=== PATIENT | female | born 1965 | race Caucasian/White ===

== ENCOUNTER 2021-07-17 15:50 | Outpatient (CLI) | payer BC, SELFPAY ==
--- NOTE | ~2021-07-17 | MM_ITS ---
EXAMINATION: MM screening ross BI w eneida HISTORY: Screening TECHNIQUE: Craniocaudal and mediolateral oblique 3-D tomosynthesis images were obtained and synthetic 2-D images were generated. CAD analysis was submitted and interpreted. COMPARISON: Comparison to multiple prior studies sequentially, with oldest reviewed study dated 03/28. BREAST PARENCHYMAL COMPOSITION: There are scattered areas of fibroglandular density. FINDINGS: There is no evidence of suspicious mass, calcification, or architectural distortion to sugg est malignancy in either breast. There has been no suspicious interval change. IMPRESSION: 1. No mammographic evidence of malignancy. 2. Recommend routine screening mammography in one year. BI-RADS Category 1: Negative Reviewed, dictated and finalized at location A. [employer]
== END 2021-07-17 15:51 | disposition home or self-care (01) ==
LOC: ANHIMG 15:53
PROVIDERS: PCP Family Medicine; Visit Provider Family Medicine
DX: Z12.31 Encounter for screening mammogram for malignant neoplasm of breast (principal)
CPT/HCPCS: 77063; 77067

== ENCOUNTER 2022-09-02 16:01 | Emergency (ER) | payer BC, SELFPAY ==
--- NOTE | 2022-09-02 17:00 | ED.DENTAL ---
HPI - Dental/Oral General Chief complaint: Dental/Oral Stated complaint: Rt Facial Swelling and Pain Time Seen by Provider: 09/02/22 17:00 Source: patient, RN notes reviewed and old records reviewed Mode of arrival: ambulatory Limitations: no limitations History of Present Illness HPI Narrative: 57 year old female presents to [facility] care with complaints of dental pain and right facial swelling with some pain to right jaw area for the past 3 days. Patient reports pain to #29 lower right molar, reports previous crown to the tooth. She reports that she has been using Oragel and has taken Aleve for her pain. She reports that she called her dentist and can't get appointment till Wednesday of next week.Patient reports no difficulty with her breathing or with swallowing, no trismus noted. MD Complaint: tooth pain Location: Tooth # (29) Onset (ago): day(s) (3) Severity: moderate Severity scale (1-10): 5 Exacerbating factors: chewing Treatment prior to arrival: topical analgesic and oral analgesic (Aleve) Related Data Home Medications Medication Instructions Recorded Confirmed levothyroxine 112 mcg tablet 112 mcg PO DAILY 09/02/22 09/02/22 losartan 50 mg tablet 50 mg PO DAILY 09/02/22 09/02/22 Allergies Allergy/AdvReac Type Severity Reaction Status Date / Time UNKNOWN NAUSEA MED Allergy Unknown Uncoded 09/02/22 17:15 Review of Systems Review of Systems: CONSTITUTIONAL: Denies fever, chills, or sweats. ENT: Denies rhinorrhea, congestion, sore throat, or otalgia. Reports dental pain#29 tooth with some gum swelling and pain to right jaw with some facial swelling right side. CARDIOVASCULAR: Denies chest pain, palpitations, or edema. RESPIRATORY: Denies cough or dyspnea. SKIN: Denies rash or itching. MUSCULOSKELETAL: Denies myalgia. NEUROLOGIC: Denies headache All systems reviewed & are unremarkable except as noted in HPI and below PMFSH Past Medical History Medical History (Updated 09/03/22 @ 10:12 by Mary Bean NP) Hypertension Hypothyroidism Surgical History Surgical History (Updated 09/03/22 @ 10:40 by Mary Bean NP) H/O: hysterectomy Previous section x3 Social History Social History (Updated 09/03/22 @ 10:41 by Mary Bean NP) Smoking status: Former smoker Tobacco type: cigarettes Alcohol intake: unknown Substance use type: does not use Living arrangements: with family Gender identity (if verbalized by the patient): Female Comments At time of signature, agree with nursing past medical, surgical, social and family history. There is no relevant family history pertinent to the presenting complaint Exam Narrative: GENERAL: Well-appearing, well-nourished, and in no acute distress. HEAD: Normocephalic, atraumatic. EYES: PERRLA and EOMI. ENT: Nares clear, no rhinorrhea or epistaxis. Mucous membranes moist. Missing teeth molars, no broken teeth noted or obvious caries, swelling redness and pain to gum around #29 tooth,no drainage noted, reports some right jaw pain and mild swelling to right side of face.No Gregg angina, no trismus noted NECK: Supple. no Lymphadenopathy CHEST: Clear to auscultation. No respiratory distress.SAO2 98% on room air HEART: Regular rate and rhythm. No murmur heard. Normal peripheral pulses. SKIN: Warm, dry, no rash. NEURO: No focal deficits. Alert and oriented x3. Course Course Emergency Course: Patient is aware of diagnosis, understands and agrees to treatment plan. Anticipatory guidance given. Patient agrees to follow-up as directed and is aware of reasons to seek care at the emergency department. Portions of this record may have been created with voice recognition software Level of Care: Express Care Visit Vital Signs Vital signs: Vital Signs Temperature 36.6 C 09/02/22 17:14 Pulse Rate 78 09/02/22 17:14 Respiratory Rate 18 09/02/22 17:14 Blood Pressure 152/93 H 09/02/22 17:14 Pulse Oximetry 98 09/02/22 17:14 Ox
[2022-09-02 17:14] VITALS: BP 152/93; PULSE 78; RESP 18; TEMP 36.6; O2SAT 98
== END 2022-09-02 17:24 | disposition home or self-care (01) ==
PROVIDERS: Emergency Provider Registered Nurse; PCP Family Medicine
DX: K08.89 Other specified disorders of teeth and supporting structures (principal); R22.0 Localized swelling, mass and lump, head; I10 Essential (primary) hypertension; E03.9 Hypothyroidism, unspecified; Z87.891 Personal history of nicotine dependence
CPT/HCPCS: 99213; G0463

== ENCOUNTER 2022-09-09 15:32 | Outpatient (CLI) | payer BC, SELFPAY ==
--- NOTE | ~2022-09-09 | MM_ITS ---
EXAMINATION: MM screening ross BI w eneida HISTORY: Screening mammogram TECHNIQUE: Craniocaudal and mediolateral oblique 3-D tomosynthesis images were obtained and synthetic 2-D images were generated. CAD analysis was submitted and interpreted. COMPARISON: No prior mammogram is available for comparison at this institution. BREAST PARENCHYMAL COMPOSITION: There are scattered areas of fibroglandular density. FINDINGS: There is no evidence of suspicious mass, calcification, or architectural distortion to sugg est malignancy in either breast. There has been no suspicious interval change. IMPRESSION: 1. No mammographic evidence of malignancy. 2. Recommend routine screening mammography in one year. BI-RADS Category 1: Negative Reviewed, dictated and finalized at location A.
== END 2022-09-09 15:33 | disposition home or self-care (01) ==
LOC: ANHIMG 15:33
PROVIDERS: PCP Family Medicine; Visit Provider Family Medicine
DX: Z12.31 Encounter for screening mammogram for malignant neoplasm of breast (principal)
CPT/HCPCS: 77063; 77067

== ENCOUNTER 2022-11-26 09:31 | Emergency (ER) | payer BC, SELFPAY ==
--- NOTE | ~2022-11-26 | XR_ITS ---
EXAMINATION: XR chest 2V DATE: 11/26/2022 10:36 INDICATION: Cough and wheezing. TECHNIQUE: Frontal and lateral views of the chest were obtained. COMPARISON: Chest 2 views 06/23/2017 FINDINGS: The chest demonstrates clear lungs without pneumonia, pleural effusion, or pneumothorax. Th e heart size is normal. IMPRESSION: 1. No acute cardiopulmonary disease. Reviewed, dictated and finalized at location A.
[2022-11-26 09:44] VITALS: BP 134/96; PULSE 94; RESP 18; TEMP 36.7; O2SAT 97
--- NOTE | 2022-11-26 10:04 | ED.URI ---
HPI - URI/Sore Throat General Chief Complaint: Upper Respiratory Infection Stated Complaint: sob Time Seen by Provider: 11/26/22 10:04 Source: patient, RN notes reviewed and old records reviewed Mode of arrival: ambulatory Limitations: no limitations History of Present Illness HPI Narrative: 57-year-old female presents to the [facility] with complaints of shortness of breath and cough for 1 week. Patient is currently a smoker. Denies any chest pain, fevers. States she has a history of bronchitis. Pertinent past history: seasonal allergies Related Data Home Medications Medication Instructions Recorded Confirmed levothyroxine 112 mcg tablet 112 mcg PO DAILY 09/02/22 11/26/22 losartan 50 mg tablet 50 mg PO DAILY 09/02/22 11/26/22 Allergies Allergy/AdvReac Type Severity Reaction Status Date / Time UNKNOWN NAUSEA MED Allergy Unknown Uncoded 09/02/22 17:15 Review of Systems Review of Systems: All systems reviewed & are unremarkable except as noted in HPI and below Constitutional: Constitutional: Reports no additional constitutional complaints Eyes: Eyes: Reports no additional eye complaints ENT: Reports system reviewed and no additional complaints, except as documented Cardiovascular: Cardiovascular: Reports no additional cardiovascular complaints, Denies chest pain and Denies dyspnea Respiratory: Respiratory: Reports as per HPI, Reports chest congestion, Reports cough and Reports dyspnea Gastrointestinal: Gastrointestinal: Reports no additional gastrointestinal complaints, Denies abdominal pain, Denies nausea and Denies vomiting Musculoskeletal: Musculoskeletal: Reports no additional musculoskeletal complaints Integumentary/Breasts: Skin/Breast: Reports system reviewed and no additional complaints, except as docu Neurologic: Reports system reviewed and no additional complaints, except as documented Psychiatric: Psychiatric: Reports no additional psychiatric complaints Allergic/Immunologic: Allergic/Immunologic: Reports no additional allergic/immunologic complaints [facility] Past Medical History Medical History (Updated 11/26/22 @ 10:51 by Selene Russ APRN) Hypertension Hypothyroidism Surgical History Surgical History (Updated 09/03/22 @ 10:40 by Mary Bean NP) H/O: hysterectomy Previous section x3 Social History Social History (Updated 09/03/22 @ 10:41 by Mary Bean NP) Smoking status: Former smoker Tobacco type: cigarettes Alcohol intake: unknown Substance use type: does not use Living arrangements: with family Gender identity (if verbalized by the patient): Female Comments At the time of my signature, I reviewed and agree with the nursing past medical, surgical, social, and family history. There is no relevant family history pertinent to the patient complaint. Exam Const: General: cooperative, healthy appearing, comfortable, no acute distress, well developed, alert and well nourished Nutritional Appearance: well nourished Orientation/consciousness: patient oriented x3 Limitations: no limitations HENMT: Head: normal to inspection Ears: hearing grossly normal bilaterally and external ears normal Face/Nose/Sinus: Normal external nose present, Normal nares present, Normal nasal mucous membranes and turbinates present and normal facial exam Face and sinus: normal facial exam Mouth: Yes Normal oral and palatal mucosa present, Yes lip normal and Yes moist mucous membranes Throat: posterior oropharynx normal and uvula midline Eyes: General: appearance normal, both eyes and all related structures Alignment and Position: alignment normal Periorbital: periorbital findings normal Pupils: Equal, round and reactive pupils present EOM: EOMs intact bilaterally Neck: Neck: normal visual inspection, full ROM, no lymphadenopathy and no meningeal signs Chest: Chest palpation & inspection: normal inspection of the chest Resp: Effort & Inspection: normal respi
== END 2022-11-26 11:00 | disposition home or self-care (01) ==
PROVIDERS: Emergency Provider Nurse Practitioner; PCP Family Medicine
DX: J40 Bronchitis, not specified as acute or chronic (principal); I10 Essential (primary) hypertension; E03.9 Hypothyroidism, unspecified; Z87.891 Personal history of nicotine dependence
CPT/HCPCS: 71046; 99213; G0463

== ENCOUNTER 2023-01-26 00:29 | Day surgery (SDC) | payer BC, SELFPAY ==
[2023-01-14 11:45] VITALS: BMI 27.4
[2023-01-26 09:27] VITALS: BP 126/86; PULSE 94; RESP 16; TEMP 36.2; O2SAT 99
[2023-01-26] MEDS: LACTATED RINGERS 1,000 ML 150 ML IV CONT (09:36)
--- NOTE | 2023-01-26 09:57 | PM.HPGS ---
History of Present Illness History of Present Illness Consent: Risks, benefits, and alternatives have been discussed and questions answered. Patient agrees to proceed with procedure. Chief complaint: other fecal abnormalities Narrative: Ursula Deng is a 57 year old female her for first colonoscopy, had + cologuard Review of Systems Constitutional: Constitutional: Denies headache(s) and Denies weakness Eyes: Eyes: Denies blurry vision ENT: Reports Normal hearing present, Denies headache(s) and Denies neck pain Cardiovascular: Cardiovascular: Denies chest pain and Denies dyspnea Respiratory: Respiratory: Denies dyspnea Gastrointestinal: Gastrointestinal: Reports no additional gastrointestinal complaints Genitourinary: Genitourinary: Denies dysuria Musculoskeletal: Musculoskeletal: Denies neck pain Integumentary/Breasts: Skin/Breast: Denies dry skin Neurologic: Reports Normal hearing present, Denies headache(s) and Denies weakness Psychiatric: Psychiatric: Denies anxiety Endocrine: Endocrine: Denies change in body appearance Hematologic/Lymphatic: Hematologic/Lymphatic: Denies easy bleeding Allergic/Immunologic: Allergic/Immunologic: Denies urticaria PMFSH Past Medical History Medical History (Updated 01/26/23 @ 10:00 by Chi Shafer MD) Cigarette nicotine dependence Hypertension Hypothyroidism Positive colorectal cancer screening using Cologuard test Surgical History Surgical History H/O: hysterectomy Previous section x3 Social History Social History (Updated 01/05/23 @ 15:00 by Leticia Ramirez MA) Smoking packs per day: 0.5 Smoking cigarettes per day: 10.0 Years smoked: 43 Smoking pack-years: 21.50 Smoking status: Current every day smoker Tobacco type: cigarettes Alcohol intake: current Alcohol use details: 2 drinks monthly Substance use: never Substance use type: does not use Lack of Transportation: No Lack of Food: Never True Current Housing: I Have Housing Concerned About Future Housing: No Difficulty Paying Gas/Electric Bills: No Difficulty Paying for Meds: No Currently Unemployed: No Education: Bachelor's Degree Difficulty w/ Childcare or Family Care: No Living arrangements: with family Occupation/Education: occupation Gender identity (if verbalized by the patient): Female Sexual Orientation (if Verbalized by the Patient): Straight or Heterosexual Spiritual care concerns: No Meds Home Medications and Allergies Home Medications Medication Instructions Recorded Confirmed Type levothyroxine 112 mcg tablet 112 mcg PO DAILY 09/02/22 01/26/23 History losartan 50 mg tablet 50 mg PO DAILY 09/02/22 01/14/23 History albuterol sulfate 90 mcg/actuation 2 puff inhalation QID PRN 11/26/22 01/14/23 Rx aerosol inhaler shortness of breath or wheezing #6.7 grams inhalational spacing device #1 ea 11/26/22 Rx (Aerochamber MV spacer) varenicline 0.5 mg (11)-1 mg (42) See Rx Instructions PO PER PKG DIR 01/05/23 01/14/23 Rx tablets in a dose pack #53 ea Allergies Allergy/AdvReac Type Severity Reaction Status Date / Time No Known Allergies Allergy Verified 01/26/23 09:26 Vital Signs Vital Signs - 24 hr 01/26/23 09:27 Temperature 97.2 F L Pulse Rate 94 Respiratory Rate 16 Blood Pressure 126/86 Pulse Oximetry 99 Oxygen Delivery Room Air Exam Const: General: comfortable and no acute distress HENMT: Face/Nose/Sinus: Normal nares present Eyes: General: appearance normal, both eyes and all related structures Neck: Neck: no JVD Resp: Auscultation: clear to auscultation bilaterally Cardio: Rate: regular rate Rhythm: regular rhythm GI: Inspection: non-distended GI Palp: Yes Soft to palpation Skin: General skin exam: normal color Neuro: General: gait normal Speech: normal speech Extrem: General: normal to inspection
[2023-01-26 10:27] VITALS: BP 113/79; PULSE 94; RESP 23; O2SAT 91
[2023-01-26 10:37] VITALS: BP 116/78; PULSE 86; RESP 26; O2SAT 99
[2023-01-26 10:47] VITALS: BP 125/84; PULSE 78; RESP 15; O2SAT 99
== END 2023-01-26 10:56 | disposition home or self-care (01) ==
PROVIDERS: PCP Family Medicine; Visit Provider Internal Medicine Gastroenterology
PROC: 0DJD8ZZ Inspection of Lower Intestinal Tract, Via Natural or Artificial Opening Endoscopic (ICD-10-PCS; CPT 45378; principal; 2023-01-26 10:45)
DX: R19.5 Other fecal abnormalities (principal); D12.2 Benign neoplasm of ascending colon; D12.3 Benign neoplasm of transverse colon; K57.30 Diverticulosis of large intestine without perforation or abscess without bleeding; K64.8 Other hemorrhoids; I10 Essential (primary) hypertension; E03.9 Hypothyroidism, unspecified; F17.210 Nicotine dependence, cigarettes, uncomplicated; Z79.51 Long term (current) use of inhaled steroids
CPT/HCPCS: 45385; 88305; J2704; J7120

== ENCOUNTER 2023-05-29 16:04 | Emergency (ER) | payer BC, SELFPAY ==
[2023-05-29 16:16] VITALS: BP 149/95; PULSE 106; RESP 16; TEMP 36.7; O2SAT 97
--- NOTE | 2023-05-29 16:49 | ED.URI ---
HPI - URI/Sore Throat General Chief Complaint: Upper Respiratory Infection Stated Complaint: Sore Throat,Body Chills,Headache Time Seen by Provider: 05/29/23 16:42 Source: patient and RN notes reviewed Mode of arrival: ambulatory Limitations: no limitations History of Present Illness HPI Narrative: Patient presents today complaining of sore throat, chills, cough, headache, and neck pain since yesterday. She currently rates her pain 7/10 and took Aleve yesterday with some relief, but none today. She did a home COVID test last night that was negative. Works at a [employer] Medications Medication Instructions Recorded Confirmed levothyroxine 112 mcg tablet 112 mcg PO DAILY 09/02/22 05/29/23 losartan 50 mg tablet 50 mg PO DAILY 09/02/22 05/29/23 Allergies Allergy/AdvReac Type Severity Reaction Status Date / Time No Known Allergies Allergy Verified 05/29/23 16:23 Review of Systems Review of Systems: CONSTITUTIONAL: Denies body aches, fever, or sweats.+ chills EYES: Denies visual changes, redness, or discharge. ENT: Denies rhinorrhea, congestion, or otalgia.+ sore throat, neck pain CARDIOVASCULAR: Denies chest pain, palpitations, or edema. RESPIRATORY: Denies dyspnea.+ cough GASTROINTESTINAL: Denies abdominal pain, nausea, vomiting, or diarrhea. GENITOURINARY: Denies dysuria or hematuria. SKIN: Denies rash, itching, or wounds. MUSCULOSKELETAL: Denies back pain, joint pain, or myalgia. NEUROLOGIC: Denies numbness, tingling, or weakness.+ headache PSYCH: Denies depression or anxiety. [facility] Past Medical History Medical History Cigarette nicotine dependence Hypertension Hypothyroidism Positive colorectal cancer screening using Cologuard test Surgical History Surgical History H/O: hysterectomy Previous section x3 Social History Social History Smoking packs per day: 0.5 Smoking cigarettes per day: 10.0 Years smoked: 43 Smoking pack-years: 21.50 Smoking status: Current every day smoker Tobacco type: cigarettes Alcohol intake: current Alcohol use details: 2 drinks monthly Substance use: never Substance use type: does not use Lack of Transportation: No Lack of Food: Never True Current Housing: I Have Housing Concerned About Future Housing: No Difficulty Paying Gas/Electric Bills: No Difficulty Paying for Meds: No Currently Unemployed: No Education: Bachelor's Degree Difficulty w/ Childcare or Family Care: No Living arrangements: with family Occupation/Education: occupation Gender identity (if verbalized by the patient): Female Sexual Orientation (if Verbalized by the Patient): Straight or Heterosexual Spiritual care concerns: No Comments At time of signature, I have reviewed and agree with nursing past medical, surgical, social and family history unless otherwise noted. Please see nursing chart for further information. There is no relevant family history pertinent to the presenting complaint Exam Narrative: GENERAL: Mildly ill-appearing, well-nourished, and in no acute distress. HEAD: Normocephalic, atraumatic. EYES: EOMI. No redness or drainage. Conjunctivae normal. ENT: Mucous membranes pink and moist. Nares clear. No rhinorrhea. TMs normal bilaterally. Throat mildly erythematous and edematous without exudate. Uvula midline. NECK: Normal AROM. Supple. Right anterior cervical chain lymphadenopathy and tenderness CHEST: No respiratory distress. Clear to auscultation. HEART: Regular rate and rhythm. No murmur appreciated. EXTREMITIES: Normal range of motion. No edema. SKIN: Warm, dry, no rash. Capillary refill normal. Normal skin turgor. NEURO: No focal deficits. Alert and oriented x3. Gait steady. PSYCH: Normal affect. No signs of depres
== END 2023-05-29 16:55 | disposition home or self-care (01) ==
PROVIDERS: Emergency Provider Nurse Practitioner; PCP Family Medicine
DX: J06.9 Acute upper respiratory infection, unspecified (principal); F17.210 Nicotine dependence, cigarettes, uncomplicated; I10 Essential (primary) hypertension; E03.9 Hypothyroidism, unspecified
CPT/HCPCS: 87081; 87880; 99213; G0463

== ENCOUNTER 2023-12-23 07:34 | Outpatient (CLI) | payer BC, SELFPAY ==
--- NOTE | ~2023-12-23 | MM_ITS ---
EXAMINATION: MM screening ross BI w eneida HISTORY: Screening mammogram, family history of breast cancer in her mother. TECHNIQUE: Craniocaudal and mediolateral oblique 3-D tomosynthesis images were obtained and synthetic 2-D images were generated. CAD analysis was submitted and interpreted. COMPARISON: 09/09/2022, 07/17/2021, 01/03/2019 BREAST PARENCHYMAL COMPOSITION:Not Dense. There are scattered areas of fibroglandular density. FINDINGS: No suspicious mass, calcification, or architectural distortion are identified in either ranulfo ast to suggest malignancy. There has been no suspicious interval change. IMPRESSION: No mammographic evidence of malignancy. Recommend routine screening mammography in one year. BI-RADS Category 1: Negative Reviewed, dictated and finalized at location .
== END 2023-12-23 07:35 | disposition home or self-care (01) ==
PROVIDERS: PCP Family Medicine; Visit Provider Family Medicine
DX: Z12.31 Encounter for screening mammogram for malignant neoplasm of breast (principal)
CPT/HCPCS: 77063; 77067

== ENCOUNTER 2025-03-02 01:16 | Day surgery (SDC) | payer BC, SELFPAY ==
--- NOTE | 2025-02-24 13:25 | P.HP_ITS ---
H&P: HPI History of Present Illness Date/Time: 02/24/25 13:25 Chief Complaint: DESTIN Narrative: DESTIN Review of Systems Review of Systems: All systems reviewed & are unremarkable except as noted in HPI and below PMFSH Past Medical History Medical History Personal history of colonic polyps Cigarette nicotine dependence Hypothyroidism Hypertension Surgical History Surgical History H/O: hysterectomy Previous section x3 Social History Social History Smoking packs per day: 0.5 Smoking cigarettes per day: 10.0 Years smoked: 43 Smoking pack-years: 21.50 Smoking status: Current every day smoker Tobacco type: cigarettes Alcohol intake: current Alcohol use details: 2 drinks monthly Substance use: never Substance use type: does not use Lack of Transportation: No Lack of Food: Never True Current Housing: I Have Housing Concerned About Future Housing: No Difficulty Paying Gas/Electric Bills: No Difficulty Paying for Meds: No Currently Unemployed: No Education: Bachelor's Degree Difficulty w/ Childcare or Family Care: No Living arrangements: with family Occupation/Education: occupation Gender identity (if verbalized by the patient): Female Sexual Orientation (if Verbalized by the Patient): Straight or Heterosexual Spiritual care concerns: No Meds Home Medications and Allergies Home Medications ?Medication ?Instructions ?Recorded ?Confirmed ?Type cetirizine 10 mg tablet (Zyrtec) 10 mg PO DAILY #60 ta bs 07/26/23 09/25/24 Rx levothyroxine 125 mcg tablet 125 mcg PO DAILY #90 tabs 07/16/24 09/25/24 Rx losartan 50 mg tablet 50 mg PO DAILY #90 tabs 08/2709/25/24 Rx mupirocin 2 % topical ointment 1 applic topical BID #2 2 grams 09/25/24 09/25/24 Rx (Centany) triamcinolone acetonide 0.1 % 1 applic topical BID #30 grams 09/25/24 09/25/24 Rx topical cream albuterol sulfate 90 mcg/actuation 1 inh inhalation Q4 H #8.5 grams 01/30/25 Rx aerosol inhaler (Ventolin HFA) fluticasone propionate 115 2 puff inhalation BID #12 g jesse 02/13/25 Rx mcg-salmeterol 21 mcg/actuation HFA inhaler (Advair HFA) Allergies Allergy/AdvReac Type Severity Reaction Status Date / Time cat dander Allergy Mild itchy eye Verified 09/25/24 15:09 seasonal allergies Allergy Mild Watery Eye Uncoded 09/25/24 15:09 Exam Narrative: + urethral mobility Assessment and Plan Assessment and plan (1) DESTIN (stress urinary incontinence, female): Code(s): N39.3 - Stress incontinence (female) (male) Status: Acute Assessment and Plan: urethral sling
[2025-02-27 11:36] VITALS: BMI 29.0
--- NOTE | 2025-02-27 11:44 | PC.NURSE ---
Report to the Outpatient Waiting Room, entrance under the green pavilion located off [facility], at time _0715_ on date _[id number]_. Planned Procedure Time: _09_.? Time changes happen often and if your time is changed the preop area will call you the afternoon before. - You and your visitor will be asked to self-screen and do not enter if you have any COVID symptoms. Please call surgeon if you need to reschedule. - A mask is optional within the hospital at this time. Patients may have clear liquids (water, carbonated beverages, clear teas, apple juice) until 3 hours prior to surgery with a maximum of 20 ounces. - No food from midnight until time of surgery and no smoking, or chewing tobacco (or any form of nicotine). No chewing gum, candy or mints. Take only the following medications with a SIP of water on the morning of surgery: ___Levothyroxine and if needed inhalers.___ DO NOT STOP ANY OF YOUR OTHER PRESCRIPTION MEDICATIONS PRIOR TO SURGERY EXCEPT THE FOLLOWING Hold all vitamins and supplements for 3 days per anesthesiologist. Medications to discontinue per physician Date to take last dose Please no make-up, nail somali, hairspray, perfume, deodorant, or body powder the day of surgery.? No jewelry (including any body piercings) or valuables the day of surgery, leave them at home.? Please take a shower or bath the night before, or the morning of, surgery with an antibacterial soap.? Wear comfortable, loose fitting clothing.? - Jewelry must be removed prior to entering the operating room.? Rings and piercings that are not removed may be cut off. - The hospital will not accept responsibility for valuables.? - Please leave all valuables, including medications, at home the day of surgery. If you are going home after surgery, a licensed hi lo driver must drive you home.? - NO public transportation without another adult if you receive anesthesia. - We recommend that an adult stay with you for 24 hours following discharge. - We also recommend that you do not drive, make important decision, drink alcoholic beverages, or take any drugs that were not prescribed by your health care provider for at least 24 hours after your discharge time. Follow any additional instructions given to you from your surgeon. Telephone instructions given to __Ursula___and asked if any additional questions and then verbalized understanding. Patient advised to call surgeon office or pre surgery nurse liaison [phone] if any additional questions.
--- OUTSIDE RECORDS SUMMARY | 2025-03-02 01:19 | XMS_ITS | Clinical Summary ---
Author Organization [facility] Address Pending sale to [facility] [place] [address] Care Team Providers Care Chef & Owner Name Role Phone Leo Palma MD Primary Care Provider [phone] Allergies No known active allergies Medications albuterol sulfate HFA 108 (90 Base) MCG/ACT inhaler Inhale 2 puffs into the lungs every 4 (four) hours as needed for Wheezing or Shortness of breath. 18 g 4 Active levothyroxine (SYNTHROID) 125 MCG tablet Take 1 tablet (125 mcg total) by mouth every morning. Active losartan (COZAAR) 50 MG tablet Take 1 tablet (50 mg total) by mouth daily. Active cetirizine (ZYRTEC) 10 MG tablet Take 1 tablet (10 mg total) by mouth nightly at bedtime. Active fluticasone-puneet meterol (ADVAIR HFA) 115-21 MCG/ACT inhaler Inhale 2 puffs into the lungs 2 (two) times daily. 8 g 4 Active Active Problems Problem Noted Date Diagnosed Date Acute respiratory failure (CMS/HCC HHS/HCC) 02/26 Social History Tobacco Use Types Packs/Day Years Used Date Smoking Tobacco: Every Day Cigarettes 1 25 Smokeless Tobacco: Never Tobacco Cessation:Ready to Q uit: Not Asked; Counseling Given: Not Answered Alcohol Use Standard Drinks/Week Comments Yes 0 (1 standard drink = 0.6 oz pur e alcohol) social C Utilities Answer Date Recorded In the past 12 months has [employer], gas, oil, or water [employer] threatened to shut off services in your home? No 03/10/2024 Humiliation, Afraid, Rape, and Kick questionnair e Answer Date Recorded Within the last year, have y ou been afraid of your partner or ex-partner? No 03/10/2024 Within the last year, have y ou been humiliated or emotionally abused in other ways by your partner or ex-partner? No Within the last year, have y ou been kicked, hit, slapped, or otherwise physically hurt by your partner or ex-partner? No 03/10/2024 Within the last year, have y ou been raped or forced to have any kind of sexual activity by your partner or ex-partner? No 03/10/2024 Overall Financial Resource Strain (CARDIA) Answe r Date Recorded How hard is it for you to pa y for the very basics like food, housing, medical care, and heating? Not hard at all 03/10/2024 Hunger Vital Sign Answer Date Recorded Within the past 12 months, y ou worried that your food would run out before you got the money to buy more. Never true 03/10/20 24 Within the past 12 months, t he food you bought just didn't last and you didn't have money to get more. Never true 03/10/2024 PRAPARE - Transportation Answer Date Re corded In the past 12 months, has l ack of transportation kept you from medical appointments or from getting medications? No 02/26 In the past 12 months, has l ack of transportation kept you from meetings, work, or from getting things needed for daily living? No 03/10/2024 Housing Stability Vital Sign Answer River e Recorded In the last 12 months, was t here a time when you were not able to pay the mortgage or rent on time? No 03/10/2024 In the past 12 months, how m any times have you moved where you were living? 0 03/10/2024 At any time in the past 12 m [facility], were you homeless or living in a fdc (including now)? No 03/10/2024 Comments Unknown Sex and Gender Information Value Date Recorded Sex Assigned at Not on file Legal Sex Female 8:22 PM CDT Gender Identity Not on file Sexual Orientation Not on file Last Filed Vital Signs Vital Sign Reading Time Taken Comments Blood Pressure 142/94 03/12/2024 6:55 AM CDT nurse notified Pulse 83 03/12/2024 6:55 AM CDT Temperature 36.3 C (97.3 F) 03/12/2024 6:55 AM CDT Respiratory Rate 18 03/12/2024 6:55 AM CDT Oxygen Saturation 94% 03/12/2024 6:5 5 AM CDT Inhaled Oxygen Concentration - - Weight 84.3 kg (185 lb 13.6 oz) 03/12/2024 5:00 AM CDT Height 170.2 cm (5' 7) 03/10/2024 10:2 4 AM CDT Body Mass Index 29.11 03/10/2024 10:24 AM CDT Plan of Treatment Health Maintenance Due Date Last Done Comments Cervical Cancer Screening Pa p Smear (Age 30 to 64) Every 3 Years 1964 Colorectal Cancer Screening Colonoscopy (10 Years) 1964 Annual Physical 1967 Hepatitis C 1982 Pneumococcal Vaccine: 50+ Ye ars (1 of 2 - PCV) 1983 Cervical Cancer Screening Pa p with HPV Testing (Age 30 to 64) Every 5 Years 1994 Cervical Cancer Screening with HPV 1994 Mammogram Screening 2004 Zoster Vaccines (1 of 2) 2014 COVID-19 Vaccine ( - 2023-2 5 season) 2024 Lung Cancer Screening 03/11/2025 03/11/2024 DTaP, Tdap and Td Vaccines ( 2 - Td or Tdap) 07/13/2026 07/13/2016 RSV Immunization or 60+ Years (1 - 1-dose 75+ series) 2039 Meningococcal B Vaccine Aged Out No l onger eligible based on patient's age to complete this topic Meningococcal Vaccine Aged Out No karin bev eligible based on patient's age to complete this topic RSV Immunizations Under 20 Months Aged Out No longer eligible based on patient's age to complete this topic Procedures Procedure Name Priority Date/Time Associated Diagnosis Comments CT CHEST WO CON Routine 03/11/2024 9:08 AM CDT from Last 3 Months or Most Recently Relevant to Health Maintenance Results * CT CHEST WO CON (03/11/2024 9:08 AM CDT) Anatomical Region Laterality Modality Chest Computed Tomogra phy 03/11/2024 9:50 AM CDT Impressions 03/11/2024 10:04 AM CDT IMPRESSION: Bilateral groundglass opacities, primarily in the left upper lobe, possibly atypical pneumonia but objectively nonspecific. Consider surveillance in three months. Referred By: Interpreted By: Hebert Carson MD, 03/11/2024 9:50 AM Narrative 03/11/2024 10:04 AM CDT [facility] [address] [place] [place] [address] Examination: CT of the chest without contrast. Exam time: 0910 hours. Clinical history: Hypoxemia. Comparison: None. Technique: Spiral scanning was performed through the chest without contrast. Sagittal and coronal reconstructions were performed from the data set. A dose lowering technique was used for this procedure, which may include, but is not limited to, dose reduction techniques, automated exposure control, the use of iterative reconstruction and ALARA/Image Gently techniques. Findings: There is minimal atherosclerotic calcification of the aorta. The heart and great vessels are otherwise unremarkable for the noncontrast technique. No hilar or mediastinal adenopathy is identified. No endobronchial abnormality is identified. There is scarring in the right apex including a calcified granuloma. There are groundglass opacities in both lungs, primarily in the left upper lobe, possibly reflecting atypical pneumonia but objectively nonspecific. There is no dominant mass, suspicious nodule or confluent airspace opacity. There is no pleural effusion. The chest wall structures appear intact. The included sections through the upper abdomen show no acute process. Procedure Note Hebert Carson MD - 03/11/2024 [facility] [address] [place] [id number] Examination: CT of the chest without contrast. Exam time: 0910 hours. Clinical history: Hypoxemia. Comparison: None. Technique: Spiral scanning was performed through the chest withoutcontrast. Sagittal and coronal reconstructions were performed from thedata set. A dose lowering technique was used for this procedure, whichmay include, but is not limited to, dose reduction techniques, automatedexposure control, the use of iterative reconstruction and ALARA/ImageGently techniques. Findings: There is minimal atherosclerotic calcification of the aorta.The heart and great vessels are otherwise unremarkable for the noncontrasttechnique. No hilar or mediastinal adenopathy is identified. Noendobronchial abnormality is identified. There is scarring in the rightapex including a calcified granuloma. There are groundglass opacities inboth lungs, primarily in the left upper lobe, possibly reflecting atypicalpneumonia but objectively nonspecific. There is no dominant mass,suspicious nodule or confluent airspace opacity. There is no pleuraleffusion. The chest wall structures appear intact. The included sectionsthrough the upper abdomen show no acute process. IMPRESSION: Bilateral groundglass opacities, primarily in the left upper lobe,possibly atypical pneumonia but objectively nonspecific. Considersurveillance in three months. Referred By: Interpreted By: Hebert Carson MD, 03/11/2024 9:50 AM Heber Vera MD CT Final Result from Last 3 Months or Most Recently Relevant to Health Maintenance Insurance [facility] Advance Directives * Full Code (Latest Code Status on File) Date Activated Date Inactivated Comments 03/10/2024 10:13 AM 03/12/2024 11:35 AM Care Teams Chef & Owner Relationship Specialty Start Date End Date Leo Palma MD [address] [place], [place] [id number] PCP - General FAMILY PRACTICE 01/02/23
--- OUTSIDE RECORDS SUMMARY | 2025-03-02 01:19 | XMS_ITS | Patient Health Record ---
Author Organization [facility] Address [address] [place] [address] Support Name Relationship Address Phone Lenin Deng Emergency Contact Unknown [phone] Ursula Deng Guarantor Unknown [phone] Reason For Referral No Information Plan Of Treatment No Information
--- OUTSIDE RECORDS SUMMARY | 2025-03-02 01:19 | XMS_ITS | Clinical Summary ---
Author Organization [facility] [employer] Address [address] [place] [address] Care Team Providers Care [employer] Name Role Phone Leo Palma MD Primary Care Provider [phone] [facility] [employer],non-owned Affiliates and Associated Physician Practices is amultiple site organization consisting of ambulatory clinics and hospital sitesin [place], [place], [place] and [place]. This disclosure is being madepursuant to the Care Everywhere program and may not contain all information available regarding this patient. Last updated 18.[facility] [employer] Allergies Active Allergy Reactions Criticality Noted Date Comments Diphenhydramine Other 05/24/2018 Sofia De La O Severe Sinus and Allergy sets off her vertigo. Medications * Be aware that medications may not be up to date on this document. Alwaysverify current medications with the patient. LEVOTHYROXINE SODIUM PO Active Nutritional Supplements (ESTROVEN PO) Active Family History Medical History Relation Name Comments Diabetes - Type 2 Father Cancer - Breast Mother Asthma Neg Hx Autoimmune Disease Neg Hx Bipolar Disorder Neg Hx Cancer - Colon Neg Hx Cancer - Other Neg Hx Cancer - Ovarian Neg Hx Cancer - Pancreatic Neg Hx Cancer - Prostate Neg Hx Depression Neg Hx Eczema Neg Hx Hypertension Neg Hx Migraine Neg Hx Osteoporosis Neg Hx Seizures Neg Hx Sudd. <30 Neg Hx Thyroid Disease Neg Hx Ulcerative Colitis Neg Hx Relation Name Status Comments Father Mother Alive Social History Tobacco Use Types Packs/Day Years Used Date Smoking Tobacco: Every Day Cigarettes 0.5 37 Smokeless Tobacco: Never Tobacco Cessation:Ready to Q uit: No; Counseling Given: Yes Comments:started smoking at age 15 Alcohol Use Standard Drinks/Week Comments No 0 (1 standard drink = 0.6 oz pur e alcohol) Comments No Sex and Gender Information Value Date Recorded Sex Assigned at Not on file Legal Sex Female 7:47 AM CDT Gender Identity Not on file Sexual Orientation Not on file Last Filed Vital Signs Vital Sign Reading Time Taken Comments Blood Pressure 116/70 05/24/2018 10:53 AM SPANISHER Pulse 98 05/24/2018 10:53 AM SPANISHER Temperature 37.4 C (99.3 F) 05/24/2018 10:53 AM SPANISHER Respiratory Rate 16 05/24/2018 10:53 AM SPANISHER Oxygen Saturation 97% 05/24/2018 10:53 AM SPANISHER Inhaled Oxygen Concentration - - Weight 70.8 kg (156 lb) 05/24/2018 10:53 AM SPANISHER Height 170.2 cm (5' 7) 05/24/2018 10:53 AM SPANISHER Body Mass Index 24.43 05/24/2018 10:53 AM SPANISHER Plan of Treatment Health Maintenance Due Date Last Done Comments COLOGUARD (AGES 45-75) - COL ON CA SCREENING 1964 COLON MONITORING 1964 COLONOSCOPY - COLON CA SCREENING 1964 CT COLONOGRAPHY - COLON CA SCREENING 1964 Colorectal Cancer Screening 1964 FIT - COLON CA SCREENING 1964 FLEX SIG - COLON CA SCREENING 1964 LIPID TESTING 1964 MAMMOGRAM 1964 HIV SCREENING 1979 HEPATITIS C SCREENING 06/15/1982 DTAP/TDAP/TD VACCINES (1 - Tdap) 1983 PNEUMOCOCCAL VACCINE 50+ (1 of 2 - PCV) 1983 ZOSTER VACCINE (1 of 2) 2014 DEPRESSION SCREENING 06/28/2024 COVID-19 VACCINE ( - 2023-2 5 season) 2025 INFLUENZA VACCINE (#1) 2025 Respiratory Syncytial Virus (RSV) Vaccine Pt: or over 60 yrs (1 - 1-dose 75+ series) 2039 HEPATITIS B VACCINE Aged Out No longe r eligible based on patient's age to complete this topic HIB VACCINE Aged Out No longer eligi ble based on patient's age to complete this topic HPV VACCINE Aged Out No longer eligi ble based on patient's age to complete this topic MENINGOCOCCAL (Group B) VACC INE SHARED DECISION-MAKING Aged Out No longer eligibl e based on patient's age to complete this topic MENINGOCOCCAL GROUPS A/C/Y/W VACCINE Aged Out No longer eligible b ased on patient's age to complete this topic Insurance ANTHEM ANTHEM Care Teams [employer] Relationship Specialty Start Date End Date Leo Palma MD PCP - General Family Medicine 10/08/17
--- NOTE | 2025-03-02 07:15 | WPDHPUPDATE1 ---
History and Physical Update Update Date/Time: 03/02/25 07:15 History and Physical has been reviewed, including an updated exam of the patient. There are NO changes in the patient's condition. Risks, benefits, and alternatives have been discussed and questions answered. Patient agrees to proceed with procedure.
[2025-03-02 07:26] VITALS: BP 140/87; PULSE 80; RESP 16; TEMP 36.6; O2SAT 100
--- NOTE | 2025-03-02 08:11 | WPDANESEPPF ---
Anes - Initial Pre Proc Eval Procedure: Operation Date: 03/02/25 09:15 Proposed Procedures p Urethral Sling - Sotero Jacobson MD Date/Time: 03/02/25 08:11 Surgeon: Sotero Jacobson MD Pre Op Diagnosis: stress incont Patient Data Age: 59 Gender: F Height: 1.7 m Weight: 84 kg Allergies Allergy/AdvReac Type Severity Reaction Status Date / Time cat dander Allergy Mild itchy eye Verified 02/27/25 11:34 seasonal allergies Allergy Mild Watery Eye Uncoded 02/27/25 11:34 Home Medications ?Medication ?Instructions ?Recorded ?Confirmed ?Type cetirizine 10 mg tablet (Zyrtec) 10 mg PO DAILY #60 tabs 07/26/23 03/02/25 Rx levothyroxine 125 mcg tablet 125 mcg PO DAILY #90 tabs 07/16/24 03/02/25 Rx losartan 50 mg tablet 50 mg PO DAILY #90 tabs 09/22/24 03/02/25 Rx albuterol sulfate 90 mcg/actuation 1 inh inhalation Q4H #8.5 grams 01/30/25 03/02/25 Rx aerosol inhaler (Ventolin HFA) fluticasone propionate 115 2 puff inhalation BID #12 grams 02/13/25 02/27/25 Rx mcg-salmeterol 21 mcg/actuation HFA inhaler (Advair HFA) fluticasone propionate 50 1 spray intranasal DAILY PRN 02/27/25 02/27/25 History mcg/actuation nasal allergy symptoms spray,suspension (24 Hour Allergy Relief) Patient hx anesthesia problems: none Family hx anesthesia problems: none Results Review: All pre-operative results and documents have been reviewed as part of the pre-operative evaluation. [facility] Past Medical History Medical History Personal history of colonic polyps Cigarette nicotine dependence Hypothyroidism Hypertension Surgical History Surgical History H/O: hysterectomy Previous section x3 Social History Social History Smoking packs per day: 0.5 Smoking cigarettes per day: 10.0 Years smoked: 45 Smoking pack-years: 22.50 Smoking status: Current every day smoker Tobacco type: cigarettes Alcohol intake: current Alcohol use details: 2 drinks monthly Substance use: never Substance use type: does not use Lack of Transportation: No Lack of Food: Never True Current Housing: I Have Housing Concerned About Future Housing: No Difficulty Paying Gas/Electric Bills: No Difficulty Paying for Meds: No Currently Unemployed: No Education: Bachelor's Degree Difficulty w/ Childcare or Family Care: No Living arrangements: with family Occupation/Education: occupation Gender identity (if verbalized by the patient): Female Sexual Orientation (if Verbalized by the Patient): Straight or Heterosexual Spiritual care concerns: No Anes - Eval Final PreProcedure Day of Procedure 03/02/25 08:11 Patient weight: overweight Heart: regular rate and rhythm Lungs: clear to auscultation Airway: Mallampati scale class II Neurological: alert and oriented Last oral intake: >/= 8 hours ASA classification: III Emergent: no Anesthetic plan: proceed Anesthesia type and monitoring: general GIVS and standard monitoring Results Review: All pre-operative results and documents have been reviewed as part of the pre-operative evaluation. Informed Consent: The patient's anesthetic plan and its attendant risks and benefits were discussed with the patient/family/POA. Questions were solicited and answers provided to the satisfaction of the patient/family/POA.
[2025-03-02] MEDS: LACTATED RINGERS 1,000 ML 30 ML IV CONT (08:20)
[2025-03-02] MEDS: ceFAZolin 2 GM in SODIUM CHLORIDE 0.9% IV 50 ML 100 ML IVPB (09:07)
[2025-03-02] MEDS: BUPIVACAINE/EPINEPHRINE 0.5% 50 ML VIAL 20 ML INFILTRATE (09:13)
[2025-03-02 09:40] VITALS: BP 97/66; PULSE 89; RESP 14; O2SAT 95
--- NOTE | 2025-03-02 09:48 | W.PM.PROC2 ---
Procedure Note - Detailed Date of Procedure 03/02/25 Pre-op Diagnosis stress incontinence Post-op Diagnosis Same Procedure Performed mid urethral sling cystoscopy Surgeon Sotero Jacobson MD Anesthesia MAC and Local Indications This is a female with confirm stress urinary incontinence. She desires surgical correction. She understands the risks of bleeding, infection, injury to the urinary tract, vaginal mesh extrusion, urinary tract mesh erosion, obstructive voiding requiring a secondary procedure, hip and leg pain, dyspareunia, inability to improve overactive bladder symptoms. She agrees to proceed. Description of Procedure She was correctly identified. Informed consent obtained. She was brought the operating room. She was given appropriate anesthesia. She was given appropriate perioperative antibiotics. A time-out performed. I marked out the site of the inner thigh incisions. I anesthetized the skin and made those incisions. I anesthetized the anterior vaginal wall over the mid urethra. Atrophic vaginal tissues noted. I made a 1 cm incision. I dissected out laterally taking great care not to injure the refilled vaginal wall. I passed the helical trocars. First on the left. Then on the right. I did this from the thigh incision towards the vaginal incision. The sling was connected to the trocars and brought out through the thigh incision. I tensioned the sling appropriately. I cut and the plastic sheaths. I then closed the incision with 2 0 Vicryl. On cystoscopy there is no tumors or surgical artifact. There was no surgical artifact in the urethra. I cut the excess sling material. Close incisions with glue. She was awakened and transferred to the PACU in stable condition. Implants Urethral sling Estimated Blood Loss 20 Drains No Packing No Pathology None sent Complications No immediate complications Condition Stable Disposition PACU
[2025-03-02 10:10] VITALS: BP 112/81; PULSE 69; O2SAT 98
[2025-03-02 10:40] VITALS: BP 136/95; PULSE 67
[2025-03-02 11:10] VITALS: BP 114/76; PULSE 76
== END 2025-03-02 11:27 | disposition home or self-care (01) ==
PROVIDERS: PCP Family Medicine; Visit Provider Urology
PROC: (CPT 57288; principal; 2025-03-02 09:15)
DX: N39.3 Stress incontinence (female) (male) (principal); F17.210 Nicotine dependence, cigarettes, uncomplicated
CPT/HCPCS: 57288; J0690; C1771; J2003; J2250; J2405; J2704; J3010; J7030; J7120

== ENCOUNTER 2025-04-12 07:39 | Outpatient (CLI) | payer BC, SELFPAY ==
--- NOTE | ~2025-04-12 | MM_ITS ---
EXAMINATION: MM screening ross BI w eneida HISTORY: Screening TECHNIQUE: Craniocaudal and mediolateral oblique 3-D tomosynthesis images were obtained and synthetic 2-D images were generated. CAD analysis was submitted and interpreted. COMPARISON: 07/17/2021 BREAST PARENCHYMAL COMPOSITION: There are scattered areas of fibroglandular density. FINDINGS: There is no evidence of suspicious mass, calcification, or architectural distortion to suggest malignancy. There has been no suspicious interval change. IMPRESSION: 1. No mammographic evidence of malignancy. Recommend routine screening mammography in one year. BI-RADS Category 2: Benign finding(s) Reviewed, dictated and finalized at location Q. IMPRESSION: 1. No mammographic evidence of malignancy. Recommend routine screening mammogra phy in one year. BI-RADS Category 2: Benign finding(s)
== END 2025-04-12 07:40 | disposition home or self-care (01) ==
LOC: ANHFOHIMG 07:40
PROVIDERS: PCP Family Medicine; Visit Provider Family Medicine
DX: Z12.31 Encounter for screening mammogram for malignant neoplasm of breast (principal)
CPT/HCPCS: 77063; 77067

== ENCOUNTER 2025-06-24 10:42 | Emergency (ER) | payer BC, SELFPAY ==
--- NOTE | ~2025-06-24 | XR_ITS ---
Examination: XR chest 2V Clinical History: sob Comparison: 11/26/2022 Technique: PA and Lateral Findings: Cardiomediastinal silhouette normal size and configuration. Lungs clear. No acute bony abnormality. IMPRESSION: 1. No acute cardiopulmonary findings. Reviewed, dictated and finalized at location [facility]
--- OUTSIDE RECORDS SUMMARY | 2025-06-24 10:46 | XMS_ITS | Patient Health Record ---
Author Organization [facility] Address [address] [place] [address] Support Name Relationship Address Phone Lenin Deng Emergency Contact Unknown Ursula Deng Guarantor Unknown [phone] Reason For Referral No Information Plan Of Treatment No Information
--- OUTSIDE RECORDS SUMMARY | 2025-06-24 10:46 | XMS_ITS | Clinical Summary ---
Author Organization [facility] Address [facility] [place] [address] Care Team Providers Care Director Of Federal Sales Name Role Phone Leo Palma MD Primary Care Provider [phone] Allergies No known active allergies Medications albuterol [...] Noted Date Diagnosed Date Acute respiratory failure 03/10/2024 Social History Tobacco Use Types Packs/Day Years Used Date Smoking Tobacco: Every Day Cigarettes 1 25 Smokeless Tobacco: Never Tobacco Cessation:Ready to Q uit: Not Asked; Counseling Given: Not Answered Alcohol Use Standard Drinks/Week Comments Yes 0 (1 standard drink = 0.6 oz pur e alcohol) social [facility] Utilities Answer Date Recorded In the past 12 months has [employer], gas, oil, or water [employer] threatened to shut off services in your [...] any time in the past 12 m [facility], were you homeless or living in a custodial (including now)? No 03/10/2024 Comments Unknown Sex [...] 6:55 AM CDT Respiratory Rate 18 03/12/2024 6:5 5 AM CDT Oxygen Saturation 94% 03/12/2024 6:5 [...] Vaccines (1 of 2) 2014 COVID-19 Vaccine (2024-2 6 season) 2025 Influenza Adult (#1) 2025 DTaP, Tdap and Td Vaccines ( 2 - Td or Tdap) 07/13/2026 07/13/2016 RSV Immunization or 60+ Years (1 - 1-dose 75+ series) 2039 Hepatitis A Vaccines Aged Out No long er eligible based on patient's age to complete this topic Meningococcal B Vaccine Aged Out No l onger eligible based on patient's age to complete this topic Meningococcal Vaccine Aged Out No karin bev eligible based on patient's age to complete this topic RSV Immunizations Under 20 Months Aged Out No longer eligible based on patient's age to complete this topic Insurance [facility] Advance Directives * Full Code (Latest Code Status on File) Date Activated Date Inactivated Comments 03/10/2024 10:13 AM 03/12/2024 11:35 AM Care Teams Director Of Federal Sales Relationship Specialty Start Date End Date Leo Palma MD [address] [place] [id number] PCP - General FAMILY PRACTICE 01/02/23
--- OUTSIDE RECORDS SUMMARY | 2025-06-24 10:46 | XMS_ITS | Clinical Summary ---
Author Organization [facility] [employer] Address [address] [place] [address] Care Team Providers Care Motion Picture Cameraman Name Role Phone Leo Palma MD Primary Care Provider [phone] Source Comments [facility] [employer],non-owned Affiliates and Associated Physician Practices is amultiple site organization consisting of ambulatory clinics and hospital sitesin [place], [place], [place] and [place]. This disclosure is being madepursuant to the Care Everywhere program and may not contain all information available regarding this patient. Last updated 18.[facility] [employer] Allergies Active Allergy Reactions Criticality Noted Date [...] Comments Blood Pressure 116/70 05/24/2018 10:53 AM DIRECTOR OF DIGITAL MARKETING Pulse 98 05/24/2018 10:53 AM DIRECTOR OF DIGITAL MARKETING Temperature 37.4 C (99.3 F) 05/24/2018 10:53 AM DIRECTOR OF DIGITAL MARKETING Respiratory Rate 16 05/24/2018 10:53 AM DIRECTOR OF DIGITAL MARKETING Oxygen Saturation 97% 05/24/2018 10:53 AM DIRECTOR OF DIGITAL MARKETING Inhaled Oxygen Concentration - - Weight 70.8 kg (156 lb) 05/24/2018 10:53 AM DIRECTOR OF DIGITAL MARKETING Height 170.2 cm (5' 7) 05/24/2018 10:53 AM DIRECTOR OF DIGITAL MARKETING Body Mass Index 24.43 05/24/2018 10:53 AM DIRECTOR OF DIGITAL MARKETING Plan of Treatment Health Maintenance Due Date [...] DEPRESSION SCREENING 06/28/2024 COVID-19 VACCINE ( - 2024-2 6 season) 2025 INFLUENZA VACCINE (#1) 2025 Respiratory [...] this topic Insurance ANTHEM ANTHEM Care Teams Motion Picture Cameraman Relationship Specialty Start Date End Date Leo Palma MD PCP - General Family Medicine 10/08/17
[2025-06-24 11:27] VITALS: BP 125/84; PULSE 92; RESP 18; TEMP 36.4; O2SAT 94
[2025-06-24 11:59] LABS: EDSTREPNEGPOS1 Negative (Negative)
--- NOTE | 2025-06-24 12:33 | ED_ITS ---
HPI - URI/Sore Throat General Chief Complaint: Upper Respiratory Infection Stated Complaint: Sore Throat History of Present Illness HPI Narrative: Chief Complaint Sore throat, swollen glands, and spots on throat for one week. Patient Summary Ursula Deng presents with symptoms of an upper respiratory infection lasting one week, with concern for strep throat and oral thrush. History of Present Illness Ursula Deng reports having symptoms for about a week, starting with sinus congestion leading to drainage and progressing to an upper respiratory infection. She has been using her inhalers, Advair (normally used twice daily but often only once in the morning) and albuterol as needed. She has a history of walking pneumonia and frequent bronchitis but has never received a formal diagnosis for her respiratory issues. Over the past week, her symptoms have progressed to a sore throat with swollen glands on one side, which have partially subsided. Yesterday, she noticed spots on her throat and is concerned about strep throat. Additionally, she has observed signs of oral thrush on her tongue, despite rinsing after using her inhalers. She reports mild shortness of breath, ear involvement that has resolved, and a low-grade fever of approximately 99.9?F. She has had thrush in the past. Social History Not available. Family History Not available. Review of Systems - Positive for sore throat, swollen glands, spots on throat, and oral thrush. - Positive for mild shortness of breath and low-grade fever. - Positive for recent sinus congestion and upper respiratory symptoms. - Reports no significant ear pain currently. - Reports not having high fever. Vitals and Physical Exam findings - Right lower lobe lung sounds diminished on auscultation. No extra noises noted. Related Data Home Medications ?Medication ?Instructions ?Recorded ?Confirmed ?Last Taken ?Type fluticasone propionate 50 1 spray intranasal DAILY PRN 02/27/25 02/27/25 Unknown History mcg/actuation nasal allergy symptoms spray,suspension (24 Hour Allergy Relief) Allergies Allergy/AdvReac Type Severity Reaction Status Date / Time cat dander Allergy Mild itchy eye Verified 06/24/25 11:22 seasonal allergies Allergy Mild Watery Eye Uncoded 02/27/25 11:34 Review of Systems Review of Systems: All systems reviewed & are unremarkable except as noted in HPI and below Eyes: Eyes: Reports as per HPI ENT: Reports as per HPI Cardiovascular: Cardiovascular: Reports as per HPI Respiratory: Respiratory: Reports as per HPI Genitourinary: Genitourinary: Reports as per HPI Musculoskeletal: Musculoskeletal: Reports as per HPI Integumentary/Breasts: Skin/Breast: Reports as per HPI Neurologic: Reports as per HPI Psychiatric: Psychiatric: Reports as per HPI Endocrine: Endocrine: Reports as per HPI Hematologic/Lymphatic: Hematologic/Lymphatic: Reports as per HPI Allergic/Immunologic: Allergic/Immunologic: Reports as per HPI PMFSH Past Medical History Medical History Personal history of colonic polyps Cigarette nicotine dependence Hypothyroidism Hypertension Surgical History Surgical History H/O: hysterectomy Previous section x3 Social History Social History Smoking packs per day: 0.5 Smoking cigarettes per day: 10.0 Years smoked: 45 Smoking pack-years: 22.50 Smoking status: Current every day smoker Tobacco type: cigarettes Alcohol intake: current Alcohol use details: 2 drinks monthly Substance use: never Substance use type: does not use Lack of Transportation: No Lack of Food: Never True Current Housing: I Have Housing Concerned About Future Housing: No Difficulty Paying Gas/Electric Bills: No Difficulty Paying for Meds: No Currently Unemployed: No Education: Bachelor's Degree Difficulty w/ Childcare or Family Care: No Living arrangements: with family Occupation/Education: occupation Gender identity (if verbalized by the patient): Female Sexual Orientation (if Verbalized by the Patient): Straight or Heterosexual Spiritual care concerns: No Exam Const: General: cooperative, healthy appearing, comfortable, no acute distress and well developed Orientation/consciousness: patient oriented x3 HENMT: Head: normal to inspection Other: yellow coating noted to tounge, on uvula and tonsils. Eyes: General: appearance normal, both eyes and all related structures Resp: Effort & Inspection: normal respiratory effort and able to speak in complete sentences Other: left lower lobe diministed. Cardio: Rate: regular rate Rhythm: regular rhythm Heart sounds: S1 normal heart sound present and S2 normal heart sound present Skin: General skin exam: normal color Neuro: General: patient oriented x3 Cognition (Neuro): normal cognition Speech: normal speech Psych: Mental Status: mental status grossly normal Course Course Level of Care: Express Care Visit Vital Signs Vital signs: Vital Signs Temperature 97.6 F 06/24/25 11:27 Pulse Rate 92 06/24/25 11:27 Respiratory Rate 18 06/24/25 11:27 Blood Pressure 125/84 06/24/25 11:27 Pulse Oximetry 94 06/24/25 11:27 Oxygen Delivery Room Air 06/24/25 11:27 Temperature 97.6 F 06/24/25 11:27 Pulse Rate 92 06/24/25 11:27 Respiratory Rate 18 06/24/25 11:27 Blood Pressure 125/84 06/24/25 11:27 Pulse Oximetry 94 06/24/25 11:27 Oxygen Delivery Room Air 06/24/25 11:27 [facility] Narrative Medical decision making narrative: Assessment 1. Upper respiratory infection, possible strep throat 2. Oral thrush 3. Differential diagnosis includes: 1. Pneumonia 2. COPD 3. Strep throat 4. Sinusitis 5. cough 1 week duration Plan - Obtain a chest X-ray to rule out pneumonia. - Treat oral thrush. - Await strep throat swab results for further management. Negative - Follow-up for treatment based on X-ray and lab results. - Chest xray showed no acute process. Differential Diagnosis Differential Diagnosis: Differentials include but not limited to pneumonia, COPD exacerbation, strep, oral thrush, URI, postviral cough, sinusitis. Lab Data [facility] Lab Attestation statement: I personally reviewed the patient's lab results. Labs: Lab Results 06/24/25 Range/Units 11:57 POC Grp A Strep Screen Negative (Negative) Imaging Data Attestation: I personally reviewed and interpreted this imaging study as follows: Radiologist's impression: ITS Impressions Chest X-Ray 06/24/25 12:33 IMPRESSION: 1. No acute cardiopulmonary findings. Discharge Plan Discharge Clinical Impression: Sinusitis, Candidiasis of mouth Patient Disposition: Home Condition: Stable Instructions: Antibiotic Form Additional Instructions: Antibiotics as prescribed. Make sure to finish completely unless instructed otherwise. Prednisone 40 mg daily for 5 days. Use the nystatin swish and swallow 5 mL 4 times a day hold in mouth as long as you can and then swallow. Follow-up with primary care provider if no improvement. Your chest x-ray was negative for acute process today. Will will treat for an acute sinusitis / bronchitis. Patient Language: French Prescriptions: New azithromycin 250 mg tablet See Rx Instructions .ROUTE .COMPLEX Qty: 6 0RF Rx Instructions: For 250 mg dose pack: take 500 mg today (day 1), then 250 mg for 4 days (days 2-5) prednisone 20 mg tablet 40 mg PO DAILY Qty: 10 0RF nystatin 100,000 unit/mL suspension 500,000 unit PO QID 14 Days Qty: 500 0RF Rx Instructions: swish and swallow No Action cetirizine [Zyrtec] 10 mg tablet 10 mg PO DAILY Qty: 60 0RF fluticasone propionate [24 Hour Allergy Relief] 50 mcg/actuation spray,suspension 1 spray intranasal DAILY PRN (Reason: allergy symptoms) Rx Instructions: administer into each nostril hydrocodone-acetaminophen 5-325 mg tablet 1 tablet PO Q6H PRN (Reason: pain) Qty: 20 0RF levothyroxine 125 mcg tablet 125 mcg PO DAILY Qty: 90 3RF albuterol sulfate [Ventolin HFA] 90 mcg/actuation HFA aerosol inhaler 1 inh inhalation Q4H Qty: 8.5 3RF losartan 50 mg tablet 50 mg PO DAILY Qty: 90 1RF fluticasone propion-salmeterol [Advair HFA] 115-21 mcg/actuation HFA aerosol inhaler 2 puff inhalation BID Qty: 12 0RF Patient Comments: Says uses as needed. Follow-up/Referrals: Leo Palma MD [Primary Care Provider, [facility]] Time of Disposition: 12:44 Quality NIHSS Nursing Documentation ED NIHSS nursing documentation: reviewed/agree
== END 2025-06-24 12:47 | disposition home or self-care (01) ==
PROVIDERS: Emergency Provider Nurse Practitioner Family; PCP Family Medicine
DX: J32.9 Chronic sinusitis, unspecified (principal); B37.0 Candidal stomatitis; F17.210 Nicotine dependence, cigarettes, uncomplicated; I10 Essential (primary) hypertension; E03.9 Hypothyroidism, unspecified
CPT/HCPCS: 71046; 87070; 87081; 87880; 99213; G0463